=== PATIENT | female | born 1960 | race Caucasian/White ===

== ENCOUNTER 2018-01-01 07:30 | Emergency (ER) | payer OTHER ==
[~2018-01-01] VITALS: Ht 160 cm; Wt 55.8 kg
[2018-01-01] MEDS ORDERED: HALOPERIDOL LACTATE INJ 5 MG/ML VIAL ONE (07:37)
--- NOTE | 2018-01-01 07:40 | NUR ---
CAROL BY PARAMEDICS , PER REPORT, PT FOUND LOITERING AT 12/[address] [employer]IZZ[employer] , AOX1 CONFUSE , AGITATED , VSS , WILL CONTINUE TO MONITOR .
[2018-01-01] MEDS ORDERED: LORAZEPAM INJ 2 MG/ML VIAL ONE (07:42)
--- NOTE | 2018-01-01 07:50 | NUR ---
PATIENT IS MORE AGITATED , COMBATIVE , TRYING TO LEAVE , NOTIFIED MD , ORDERS RECIEVED .
[2018-01-01 07:59] LABS: BASOPHILS % (AUTO) 0.5 % (0.0-2.0); EOSINOPHILS % (AUTO) 0.1 % (0.0-6.0); HEMATOCRIT 38 % (33-45); HEMOGLOBIN 12.9 g/dL (11.5-14.8); LYMPHOCYTES # (AUTO) 1.5 /CMM (0.8-4.8); MEAN CORPUSCULAR HEMOGLOBIN 31 PG (26.0-33.0); MEAN CORPUSCULAR HGB CONC 34 g/dl (31.0-36.0); MEAN CORPUSCULAR VOLUME 92 fL (82-100); MONOCYTES # (AUTO) 0.7 /CMM (0.1-1.30); MONOCYTES % (AUTO) 7.6 % (2.0-12.0); NEUTROPHILS # (AUTO) 7.3 /CMM (1.8-8.9); NEUTROPHILS % (AUTO) 75.8 % (43.0-81.0); PLATELET COUNT (AUTO) 260 /CMM (150-450); RDW COEFFICIENT OF VARIATION 13.5 (11.5-15.0); RED BLOOD CELL COUNT(AUTO) 4.15 MIL/uL (4.0-5.2); WHITE BLOOD COUNT (AUTO) 9.6 K/uL (4.3-11.0)
[2018-01-01] MEDS ORDERED: LORAZEPAM INJ 2 MG/ML VIAL IM ONE (08:00)
[2018-01-01] MEDS ORDERED: HALOPERIDOL LACTATE INJ 5 MG/ML VIAL IM ONE (08:00)
[2018-01-01 08:13] LABS: ALANINE AMINOTRANSFERASE 36 U/L (12-78); ALBUMIN 4.4 g/dL (3.4-5.0); ALCOHOL, BLOOD < 3 mg/dL (0-0); ALKALINE PHOSPHATASE 61 U/L (46-116); ASPARTATE AMINOTRANSFERASE 65 U/L (15-37); BILIRUBIN,DIRECT 0.2 mg/dL (0.0-0.2); CALCIUM, SERUM 9.3 mg/dL (8.5-10.1); CARBON DIOXIDE 17 mmol/L (21-32); CHLORIDE 102 mmol/L (98-107); CREATININE 1.6 mg/dL (0.6-1.3); GLUCOSE 123 mg/dL (74-106); POTASSIUM 4.1 mmol/L (3.5-5.1); SALICYLATE 1.7 mg/dL (2.8-20.0); SODIUM SERUM 139 mmol/L (136-145); TOTAL PROTEIN, SERUM 8.1 g/dL (6.4-8.2); UREA NITROGEN, BLOOD 34 mg/dL (7-18)
[2018-01-01 08:14] LABS: ACETAMINOPHEN 0 ug/ml (10-30)
--- NOTE | 2018-01-01 08:15 | NUR ---
Patient is resting comfortably in bed with eyes closed. Easily aroused. VSS .
--- NOTE | 2018-01-01 10:30 | NUR ---
PATIENT RESTING IN BED IN STABLE CONDITION. VSS. WILL MONIOTR ACCORDINGLY.
--- NOTE | 2018-01-01 17:40 | NUR ---
PATIENT IN STABLE CONDITION RESTING. RESTRAINTS ON, VISUAL SAFETY CHECKED EVERY 2HR AND NEEDED, TURNED AND REPOSITIONED NEEDED. WILL CONTINUE TO MONIOTR ACCORDINGLY.
[2018-01-01 18:24] VITALS: BP 113/71
--- NOTE | 2018-01-01 18:25 | NUR ---
PATIENT AWAKE IN BED. CALM, COOPERATIVE, MORE ALERT AND ORIENTED. OFF RESTRAINTS, NO COMPLICATIONS. VSS. NOTIFIED MD. DINNER REQUESTED AND GIVEN.
--- NOTE | 2018-01-01 19:00 | NUR ---
PATIENT IN STABLE CONDITION, ENDORSED TO JEREMY HU
--- NOTE | 2018-01-01 19:15 | NUR ---
PT DISCHARGED HOME IN STABLE CONDITION
== END 2018-01-01 19:15 | disposition home or self-care (01) ==
LOC: ER 07:31
DX: F29 Unspecified psychosis not due to a substance or known physiological condition (principal); Z86.19 Personal history of other infectious and parasitic diseases
CPT/HCPCS: 36415; 80048; 80076; 80329; 85025; 96372 ×2; 99291; A4606; G0480 ×2; J1630; J2060; Z7610

== ENCOUNTER 2018-06-25 11:52 | Emergency (ER) | payer OTHER ==
[~2018-06-25] VITALS: Ht 154.9 cm; Wt 58.5 kg
--- NOTE | 2018-06-25 11:52 | NUR ---
PT BIBRA FROM THE STREETS FOR AGITATION AND RESTLESSNESS, PT TALKING TO SELF AND YELLING.; PT AOX0, NOT APPROPRIETLY ANSWERING QUESTIONS, RESPIRATIONS EVEN AND UNLABORED, NO SOB, NAD NOTED, PT ON MONITOR, VSS, PENDING ER PROVIDER MEENUAL
[2018-06-25] MEDS ORDERED: LORAZEPAM INJ 2 MG/ML VIAL ONE (12:00)
[2018-06-25] MEDS ORDERED: OLANZAPINE 10 MG VIAL IM ONE ×2 (12:00→13:00)
[2018-06-25 12:08] LABS: BASOPHILS # (AUTO) 0.1 /CMM (0.0-0.2); BASOPHILS % (AUTO) 0.7 % (0.0-2.0); EOSINOPHILS % (AUTO) 0.1 % (0.0-6.0); HEMATOCRIT 43 % (33-45); HEMOGLOBIN 14.2 g/dL (11.5-14.8); LYMPHOCYTES % (AUTO) 16.3 % (20.0-44.0); MEAN CORPUSCULAR HGB CONC 33 g/dl (31.0-36.0); MEAN CORPUSCULAR VOLUME 90 fL (82-100); MONOCYTES # (AUTO) 0.9 /CMM (0.1-1.30); MONOCYTES % (AUTO) 7.5 % (2.0-12.0); NEUTROPHILS # (AUTO) 9.4 /CMM (1.8-8.9); NEUTROPHILS % (AUTO) 75.4 % (43.0-81.0); PLATELET COUNT (AUTO) 359 /CMM (150-450); RED BLOOD CELL COUNT(AUTO) 4.78 MIL/uL (4.0-5.2); WHITE BLOOD COUNT (AUTO) 12.5 K/uL (4.3-11.0)
--- NOTE | 2018-06-25 12:11 | NUR ---
VERBAL ORDER OF ZYPREXA 10MG IM AND ATIVAN 2MG IM GIVEN PER DR. MUSE'S ORDER
[2018-06-25 12:16] LABS: CALCIUM, SERUM 9.8 mg/dL (8.5-10.1); CARBON DIOXIDE 22 mmol/L (21-32); CHLORIDE 102 mmol/L (98-107); CREATININE 1.6 mg/dL (0.6-1.3); GLUCOSE 133 mg/dL (74-106); POTASSIUM 3.8 mmol/L (3.5-5.1); SODIUM SERUM 141 mmol/L (136-145); UREA NITROGEN, BLOOD 29 mg/dL (7-18)
[2018-06-25 12:22] LABS: ALANINE AMINOTRANSFERASE 25 U/L (12-78); ALBUMIN 4.7 g/dL (3.4-5.0); ALCOHOL, BLOOD < 3 mg/dL (0-0); ALKALINE PHOSPHATASE 75 U/L (46-116); ASPARTATE AMINOTRANSFERASE 30 U/L (15-37); BILIRUBIN,DIRECT 0.1 mg/dL (0.0-0.2); BILIRUBIN,TOTAL 0.4 mg/dL (0.2-1.0); SALICYLATE 3.3 mg/dL (2.8-20.0); TOTAL PROTEIN, SERUM 8.6 g/dL (6.4-8.2)
[2018-06-25 12:25] LABS: ACETAMINOPHEN < 10 ug/ml (10-30)
[2018-06-25] MEDS ORDERED: LORAZEPAM INJ 2 MG/ML VIAL IM ONE (13:00)
--- NOTE | 2018-06-25 13:06 | NUR ---
Ira caceres in ED - 06/25/18 at 1349 by AMAYA OFFICER KAM [id number] CAME AND INTERVIEW PT REGARDING PT CLAIM. PER OFFICER TO HAVE PT EVALUATED BY OUR PSYCH CLINICIAN
[2018-06-25 16:10] LABS: APPEARANCE,URINE CLEAR (CLEAR); BILIRUBIN,URINE NEGATIVE (NEGATIVE); BLOOD, URINE 3+ Ery/uL (NEGATIVE); COLOR,URINE YELLOW (YELLOW); KETONES,URINE TRACE (NEGATIVE); LEUKOCYTE ESTERASE ,URINE TRACE (NEGATIVE); NITRITE, URINE NEGATIVE (NEGATIVE); PROTEIN,URINE TRACE mg/dl (NEGATIVE); UGLUCOSE TRACE mg/dL (NEGATIVE); UROBILINOGEN,URINE 0.2 EU/dL (0.2)
[2018-06-25 16:22] LABS: BACTERIA,URINE Rare /HPF (None Seen); SQUAMOUS EPITHELIAL CELL,UR Few /HPF (None Seen); WBC,URINE 0-2 /HPF (0-3)
--- NOTE | 2018-06-26 06:00 | NUR ---
PATIENT AOX4. PATIENT GIVEN A SANDWICH AND GATORAID. PATIENT GIVEN CLOTHES TO WEAR WHEN SHE LEAVES THE ER.
[2018-06-26 06:27] VITALS: BP 118/82
== END 2018-06-26 06:27 | disposition home or self-care (01) ==
LOC: ER 11:56
DX: F23 Brief psychotic disorder (principal); F29 Unspecified psychosis not due to a substance or known physiological condition; F19.959 Other psychoactive substance use, unspecified with psychoactive substance-induced psychotic disorder, unspecified; Z86.19 Personal history of other infectious and parasitic diseases
CPT/HCPCS: 36415; 80048; 80076; 80305; 80307; 80329; 81001; 84702; 85025; 96372 ×2; 99284; A4606; G0480; J2060; J3490; 81000-TC

== ENCOUNTER 2019-01-05 15:26 | Emergency (ER) | payer OTHER ==
[~2019-01-05] VITALS: Ht 154.9 cm; Wt 46.7 kg
--- NOTE | 2019-01-05 15:26 | NUR ---
PT BIB RA 88 FROM INFRONT OF A LOCAL ESTABLISHMENT,ETOH INTOXICATION,LAYING ON THE SIDEWALK PER REPORT, PT IS AAOX1, NOT IN RESPIRAOTRY DISTRESS, V/S STABLE, KEPT RESTED AND COMFORTABLE, WILL CONTINUE TO MONITOR.
--- NOTE | 2019-01-05 17:58 | NUR ---
PT ASLEEP ON BED EASILY AROUSABLE, WILL CONTINUE TO MONITOR.
--- NOTE | 2019-01-05 21:18 | NUR ---
PT RESTING COMFORTABLY IN BED. EASILY AROUSABLE. VITAL SIGNS STABLE. WILL CONTINUE TO MONITOR
--- NOTE | 2019-01-05 23:13 | NUR ---
PT RESTING COMFORTABLY IN BED. EASILY AROUSABLE. VITAL SIGNS STABLE. WILL CONTINUE TO MONITOR
--- NOTE | 2019-01-06 04:40 | NUR ---
PT RESTING COMFORTABLY IN BED. VITAL SIGNS STABLE. NO ACUTE DISTRESS NOTED AT THIS TIME. WILL CONTINUE TO MONITOR
--- NOTE | 2019-01-06 05:37 | NUR ---
PT AAOX4. VITAL SIGNS STABLE. ABLE TO AMBULATE WITH STEADY GAIT. MEDICALLY CLEARED FOR DISCHARGE. PROVIDED PT WITH CRACKERS AND JUICE. REMOVED WRIST BAND. Patient given written and verbal discharge instructions. Patient verbalizes understanding of instructions. Patient is ambulatory with steady gait. Refuses offer of [facility] placement. Patient given list of available shelters in surrounding area.
[2019-01-06 05:39] VITALS: BP 112/72
== END 2019-01-06 05:41 | disposition home or self-care (01) ==
LOC: ER 15:29
DX: F10.129 Alcohol abuse with intoxication, unspecified (principal); Z60.2 Problems related to living alone; Y90.9 Presence of alcohol in blood, level not specified

== ENCOUNTER 2019-01-24 18:39 | Emergency (ER) | payer OTHER ==
[~2019-01-24] VITALS: Ht 157.5 cm; Wt 56.7 kg
[2019-01-24 19:04] VITALS: BP 134/78
--- NOTE | 2019-01-24 19:51 | NUR ---
CALLED FOR PT IN WAITING ROOM. NO RESPONSE
--- NOTE | 2019-01-24 20:31 | NUR ---
CALLED FOR PT. NO RESPONSE
== END 2019-01-24 22:01 | disposition left against medical advice (07) ==
LOC: ER 18:45
DX: M79.673 Pain in unspecified foot (principal); Z53.21 Procedure and treatment not carried out due to patient leaving prior to being seen by health care provider

== ENCOUNTER 2019-03-12 18:56 | Emergency (ER) | payer OTHER ==
[~2019-03-12] VITALS: Ht 157.5 cm; Wt 56.7 kg
--- NOTE | 2019-03-12 19:20 | NUR ---
BIBRA AND [employer] FROM STREET. TO ER BED 11. AAOX3. NO RESP DISTRESS NOTED. AMBULATORY. PER EMS REPORT PT WAS FOUNF IN THE STREETS RUNNING NAKED. UPON ASSESSMENT PT PRESENT PARANOID AND ANXIOUS. PT REPORT HEARING VOICE. NO SI OR HI. MD AT BEDSIDE FOR EVAL. ORDERS RECEIVED NOTED AND CARRIED OUT
[2019-03-12] MEDS ORDERED: OLANZAPINE 5 MG TABLET PO ONE (19:30)
[2019-03-12] MEDS ORDERED: LORAZEPAM 1 MG TABLET PO ONE (19:30)
[2019-03-12 19:42] LABS: BASOPHILS # (AUTO) 0.1 /CMM (0.0-0.2); BASOPHILS % (AUTO) 0.9 % (0.0-2.0); EOSINOPHILS % (AUTO) 0.1 % (0.0-6.0); HEMATOCRIT 38 % (33-45); HEMOGLOBIN 12.5 g/dL (11.5-14.8); LYMPHOCYTES # (AUTO) 1.5 /CMM (0.8-4.8); LYMPHOCYTES % (AUTO) 20.6 % (20.0-44.0); MEAN CORPUSCULAR HGB CONC 33 g/dl (31.0-36.0); MEAN CORPUSCULAR VOLUME 86 fL (82-100); MONOCYTES # (AUTO) 0.4 /CMM (0.1-1.30); MONOCYTES % (AUTO) 5.7 % (2.0-12.0); NEUTROPHILS # (AUTO) 5.1 /CMM (1.8-8.9); NEUTROPHILS % (AUTO) 72.7 % (43.0-81.0); PLATELET COUNT (AUTO) 343 /CMM (150-450); RED BLOOD CELL COUNT(AUTO) 4.48 MIL/uL (4.0-5.2); WHITE BLOOD COUNT (AUTO) 7.1 K/uL (4.3-11.0)
[2019-03-12] MEDS ORDERED: LORAZEPAM 1 MG TABLET ONE (19:42)
[2019-03-12] MEDS ORDERED: OLANZAPINE 5 MG TABLET ONE (19:42)
[2019-03-12 19:49] LABS: BILIRUBIN,URINE Negative (NEGATIVE); BLOOD, URINE Moderate Ery/uL (NEGATIVE); COLOR,URINE Yellow (YELLOW); KETONES,URINE Trace (NEGATIVE); LEUKOCYTE ESTERASE ,URINE Small (NEGATIVE); NITRITE, URINE Positive (NEGATIVE); PH,URINE 5.5 (5.0-8.0); PROTEIN,URINE 100 mg/dl (NEGATIVE); UGLUCOSE Negative (NEGATIVE); UROBILINOGEN,URINE 0.2 EU/dL (0.2)
[2019-03-12 19:51] LABS: APPEARANCE,URINE TURBID (CLEAR)
[2019-03-12 19:52] LABS: BACTERIA,URINE Moderate /HPF (None Seen); SQUAMOUS EPITHELIAL CELL,UR Few /HPF (None Seen); WBC,URINE 81-100 /HPF (0-3)
[2019-03-12 20:00] LABS: ALANINE AMINOTRANSFERASE 16 U/L (12-78); ALBUMIN 4.4 g/dL (3.4-5.0); ALCOHOL, BLOOD < 3 mg/dL (0-0); ALKALINE PHOSPHATASE 100 U/L (46-116); ASPARTATE AMINOTRANSFERASE 48 U/L (15-37); BILIRUBIN,DIRECT 0.1 mg/dL (0.0-0.2); BILIRUBIN,TOTAL 0.4 mg/dL (0.2-1.0); CARBON DIOXIDE 26 mmol/L (21-32); CHLORIDE 106 mmol/L (98-107); CREATININE 2.1 mg/dL (0.6-1.3); GLUCOSE 105 mg/dL (74-106); POTASSIUM 4.3 mmol/L (3.5-5.1); SODIUM SERUM 144 mmol/L (136-145); TOTAL PROTEIN, SERUM 9.2 g/dL (6.4-8.2); UREA NITROGEN, BLOOD 31 mg/dL (7-18)
[2019-03-12] MEDS ORDERED: CEPHALEXIN MONOHYDRATE 500 MG CAPSULE PO ONE ×2 (20:00→20:17)
[2019-03-12 20:01] LABS: SALICYLATE < 2.8 mg/dL (2.8-20.0)
--- NOTE | 2019-03-12 20:28 | NUR ---
CALLED COMMODITY BU[employer]ER [employer]
--- NOTE | 2019-03-12 21:21 | NUR ---
[facility] ETA 15 MINUTES
--- NOTE | 2019-03-12 22:43 | NUR ---
PT IN BED. AWAKE AND ALERT. NOTED TALKING TO HERSELF
--- NOTE | 2019-03-13 02:18 | NUR ---
Patient is resting comfortably in bed with eyes closed. Easily aroused. VSS
--- NOTE | 2019-03-13 05:31 | NUR ---
Patient is resting comfortably in bed with eyes closed. Easily aroused. VSS. SITTER AT BEDSIDE. -ACUTE DISTRESS NOTED
--- NOTE | 2019-03-13 07:28 | NUR ---
RECEIVED REPORT FROM AIMEE LUNA. PATIENT RECEIVED AWAKE, A/O X 3, AROUSABLE THROUGH VERBAL AND TACTILE STIMULI. NO ACUTE DISTRESS. DENIES ANY PAIN OR DISCOMFORT. PER SHIFT CHANGE REPORT, AWAITING FOR SOCIAL SERVICE. WILL CONTINUE TO MONITOR
--- NOTE | 2019-03-13 07:51 | NUR ---
Patient eating breakfast. will continue to monitor
--- NOTE | 2019-03-13 08:12 | NUR ---
HEAVY EQUIPMENT FIELD MECHANIC AT BEDSIDE
--- NOTE | 2019-03-13 08:20 | NUR ---
Social service consult requested by Dr. Bliss for homelessness. Pt. is a 58 year old female who was brought to [facility] ED by [employer] and rescue ambulance after she was found wandering naked on the streets. Upon arrival pt. had complains of hearing voices from her brother who is not alive and other people. hazardous materials driver, Chana evaluated the pt. and pt. was cleared psychiatrically. SW met with the pt. bedside this morning. Pt. is alert and oriented x 4. Pt. appears unkempt and disheveled. Pt. states she is homeless and has been since 2016. SW inquired with the pt. about [facility] since Chana had mentioned in her report that pt. was residing there. However, pt. stated she did not live there. A pillowcase cutter had a approached her in the streets and had recommended [facility]. SW offered pt. snf placement, however pt. declined stating she doesn't want to go to [facility]. SW gave pt information to [facility] located at [facility] [place]. ANA informed pt. to call their access hotline at . Pt. uses methamphetamine and alcohol. SW encouraged pt. to stop using and offered resources to Alcohol and Drug treatment programs. Pt. has a history of Schizophrenia and Alcohol use. Pt. denies suicidal/ homicidal ideations and visual/auditory hallucinations at this time. Pt. was provided information to the [facility] (Housing Options for people with Aids) program and requested for pt. to sign up for housing with their regional offices located at [facility], [address] [place] [address] . The following homeless snf and resources were provided to the pt: [facility] located at [address] ; [facility], [address] ; [facility] Homeless Resource Directory which includes food stamps, transitional housing, showers and hot meals etc; Mental Health clinics such as [facility] ; [facility] ; Health clinics;[facility] and Alcohol treatment centers such as [facility], ; [facility] Substance Abuse Hotline and [facility] . Pt. was also given information to [facility] located at [address] [facility] . Pt. was provided with breakfast, TAP card and clothing. No other social service needs are requested at this time. Pt's JEREMY Sommers and Dr. Bliss have been updated with pt's discharge plan.
--- NOTE | 2019-03-13 10:01 | NUR ---
PATIENT SEEN BY HEEL SEAT LASTER. PATIENT VERBALIZED THAT SHE PREFERS TO SET HER OWN ARRANGEMENTS. REQUESTED FOR CLOTHING AND TAP CARD. HANDOUTS PROVIDED TO PATIENT. DR ROJAS MADE AWARE AND GAVE ORDER FOR DISCHARGE. PLANETARIUM SKY SHOW TECHNICIAN MADE AWARE
[2019-03-13 10:25] VITALS: BP 130/82
--- NOTE | 2019-03-13 10:47 | NUR ---
Patient discharged in stable condition. Written and verbal after care instructions given. Patient verbalizes understanding of instruction. clean clothing provided. tap card provided to patient. ID band removed.
== END 2019-03-13 10:49 | disposition home or self-care (01) ==
LOC: ER 19:03
DX: F29 Unspecified psychosis not due to a substance or known physiological condition (principal); F20.9 Schizophrenia, unspecified; F41.9 Anxiety disorder, unspecified; F10.20 Alcohol dependence, uncomplicated; Y90.0 Blood alcohol level of less than 20 mg/100 ml; Z86.19 Personal history of other infectious and parasitic diseases; Z59.0 Homelessness
CPT/HCPCS: 36415; 80048; 80076; 80305; 80307; 80329; 81001; 85025; 87086; 99284; G0480; 81000-TC; 87186-TC

== ENCOUNTER 2019-04-09 10:52 | Inpatient (IN) | payer OTHER ==
[~2019-04-09] VITALS: Ht 157.5 cm; Wt 56.7 kg
[2019-04-09] MEDS ORDERED: LORAZEPAM INJ 2 MG/ML VIAL ONE (11:47)
[2019-04-09] MEDS ORDERED: LORAZEPAM INJ 2 MG/ML VIAL IM ONE (12:00)
[2019-04-09 12:29] LABS: BASOPHILS # (AUTO) 0.1 /CMM (0.0-0.2); BASOPHILS % (AUTO) 0.8 % (0.0-2.0); EOSINOPHILS % (AUTO) 0.3 % (0.0-6.0); HEMATOCRIT 39 % (33-45); HEMOGLOBIN 12.8 g/dL (11.5-14.8); LYMPHOCYTES # (AUTO) 2.5 /CMM (0.8-4.8); LYMPHOCYTES % (AUTO) 20.6 % (20.0-44.0); MEAN CORPUSCULAR HGB CONC 33 g/dl (31.0-36.0); MEAN CORPUSCULAR VOLUME 84 fL (82-100); MONOCYTES % (AUTO) 8.5 % (2.0-12.0); NEUTROPHILS # (AUTO) 8.6 /CMM (1.8-8.9); NEUTROPHILS % (AUTO) 69.8 % (43.0-81.0); PLATELET COUNT (AUTO) 378 /CMM (150-450); RED BLOOD CELL COUNT(AUTO) 4.65 MIL/uL (4.0-5.2); WHITE BLOOD COUNT (AUTO) 12.3 K/uL (4.3-11.0)
[2019-04-09 12:33] LABS: CALCIUM, SERUM 10.1 mg/dL (8.5-10.1); CARBON DIOXIDE 19 mmol/L (21-32); CHLORIDE 106 mmol/L (98-107); CREATININE 2.7 mg/dL (0.6-1.3); GLUCOSE 53 mg/dL (74-106); POTASSIUM 4.5 mmol/L (3.5-5.1); SODIUM SERUM 146 mmol/L (136-145); UREA NITROGEN, BLOOD 48 mg/dL (7-18)
[2019-04-09 12:39] LABS: ACETAMINOPHEN 0 ug/ml (10-30); ALANINE AMINOTRANSFERASE 26 U/L (12-78); ALBUMIN 4.8 g/dL (3.4-5.0); ALCOHOL, BLOOD < 3 mg/dL (0-0); ALKALINE PHOSPHATASE 95 U/L (46-116); ASPARTATE AMINOTRANSFERASE 56 U/L (15-37); BILIRUBIN,DIRECT 0.2 mg/dL (0.0-0.2); BILIRUBIN,TOTAL 0.7 mg/dL (0.2-1.0); SALICYLATE 2.2 mg/dL (2.8-20.0); TOTAL PROTEIN, SERUM 9.2 g/dL (6.4-8.2)
[2019-04-09 12:54] LABS: APPEARANCE,URINE Clear (CLEAR); BILIRUBIN,URINE SMALL (NEGATIVE); BLOOD, URINE Moderate Ery/uL (NEGATIVE); COLOR,URINE Yellow (YELLOW); KETONES,URINE 15 (NEGATIVE); LEUKOCYTE ESTERASE ,URINE Negative (NEGATIVE); NITRITE, URINE Negative (NEGATIVE); PROTEIN,URINE 100 mg/dl (NEGATIVE); UGLUCOSE Negative (NEGATIVE); UROBILINOGEN,URINE 0.2 EU/dL (0.2)
[2019-04-09] MEDS ORDERED: OLANZAPINE 10 MG VIAL IM ONE ×2 (12:59→13:00)
[2019-04-09 13:03] LABS: BACTERIA,URINE Moderate /HPF (None Seen); SQUAMOUS EPITHELIAL CELL,UR Few /HPF (None Seen); WBC,URINE 0-2 /HPF (0-3)
[2019-04-09] MEDS ORDERED: IV NS 0.9% 1,000 ML BAG IV ONE (13:30)
[2019-04-09] MEDS ORDERED: MAG HYDROX/AL HYDROX/SIMETH 30 ML UDC PO PRN (14:30)
[2019-04-09] MEDS ORDERED: ONDANSETRON HCL/PF 4 MG/2 ML VIAL IVP PRN (14:30)
[2019-04-09] MEDS ORDERED: ZOLPIDEM TARTRATE 5 MG TABLET PO PRN (14:30)
[2019-04-09] MEDS ORDERED: HYDROCODONE/APAP 5/325MG 1 EACH TABLET PO PRN (14:30)
[2019-04-09] MEDS ORDERED: Z GUARD REMEDY 2 OZ OINT TP PRN (14:30)
[2019-04-09] MEDS ORDERED: MAGNESIUM HYDROXIDE 30 ML UDC PO PRN (14:30)
[2019-04-09] MEDS ORDERED: ACETAMINOPHEN 325 MG TABLET PO PRN (14:30)
[2019-04-09] MEDS: IV 1/2NS 1000 ML 1,000 ML IV PRN (15:18)
[2019-04-09 16:00] VITALS: BP 135/84
[2019-04-09 21:01] VITALS: BP 115/62
[2019-04-10] MEDS: IV 1/2NS 1000 ML 1,000 ML IV PRN (04:18)
[2019-04-10 06:43] LABS: EOSINOPHILS % (AUTO) 3.7 % (0.0-6.0); HEMATOCRIT 35 % (33-45); HEMOGLOBIN 11.5 g/dL (11.5-14.8); LYMPHOCYTES # (AUTO) 1.5 /CMM (0.8-4.8); LYMPHOCYTES % (AUTO) 32.4 % (20.0-44.0); MEAN CORPUSCULAR HGB CONC 33 g/dl (31.0-36.0); MEAN CORPUSCULAR VOLUME 85 fL (82-100); MONOCYTES # (AUTO) 0.5 /CMM (0.1-1.30); NEUTROPHILS # (AUTO) 2.4 /CMM (1.8-8.9); NEUTROPHILS % (AUTO) 51.9 % (43.0-81.0); PLATELET COUNT (AUTO) 257 /CMM (150-450); RED BLOOD CELL COUNT(AUTO) 4.11 MIL/uL (4.0-5.2); WHITE BLOOD COUNT (AUTO) 4.5 K/uL (4.3-11.0)
[2019-04-10 07:14] LABS: ALBUMIN 3.3 g/dL (3.4-5.0); BILIRUBIN,TOTAL 0.6 mg/dL (0.2-1.0); CALCIUM, SERUM 8.3 mg/dL (8.5-10.1); CREATININE 1.7 mg/dL (0.6-1.3); MAGNESIUM 2.3 mg/dL (1.8-2.4); PHOSPHORUS 3.1 mg/dL (2.5-4.9); POTASSIUM 3.4 mmol/L (3.5-5.1); TOTAL PROTEIN, SERUM 6.9 g/dL (6.4-8.2)
[2019-04-10] MEDS ORDERED: FLUC200T PO (07:50)
[2019-04-10] MEDS ORDERED: QUET50TA PO (07:50)
[2019-04-10 08:00] VITALS: BP 118/67
[2019-04-10] MEDS: QUETIAPINE FUMARATE 25 MG TABLET PO SCH ×2 (08:42→16:03)
[2019-04-10] MEDS ORDERED: POTASSIUM CHLORIDE 20 MEQ TAB.PRT.SR PO ONE (10:00)
[2019-04-10 20:00] VITALS: BP 133/78
[2019-04-10] MEDS: MUPIROCIN OINT 2% 22 GM TUBE SCH (21:16)
[2019-04-11] MEDS: IV 1/2NS 1000 ML 1,000 ML IV PRN (02:24)
[2019-04-11] MEDS: QUETIAPINE FUMARATE 25 MG TABLET PO SCH (08:28)
[2019-04-11] MEDS: MUPIROCIN OINT 2% 22 GM TUBE SCH (09:36)
== END 2019-04-11 16:30 | DRG 469 ==
LOC: ER 10:52 → MED 14:23
PROVIDERS: ADMIT Internal Medicine
DX: N17.0 Acute kidney failure with tubular necrosis (principal); G92 Toxic encephalopathy; E87.0 Hyperosmolality and hypernatremia; F20.0 Paranoid schizophrenia; F15.10 Other stimulant abuse, uncomplicated; B19.20 Unspecified viral hepatitis C without hepatic coma; N18.9 Chronic kidney disease, unspecified; Z59.0 Homelessness; D72.829 Elevated white blood cell count, unspecified; R74.0 Nonspecific elevation of levels of transaminase and lactic acid dehydrogenase [LDH]; E87.6 Hypokalemia; Z22.322 Carrier or suspected carrier of Methicillin resistant Staphylococcus aureus; E86.9 Volume depletion, unspecified; F10.20 Alcohol dependence, uncomplicated; Y90.0 Blood alcohol level of less than 20 mg/100 ml
CPT/HCPCS: 36415; 80048-TC; 80053-TC; 80061-TC; 80076-TC; 80305; 81000-TC; 83735-TC; 84100-TC; 85025-TC; 87081-TC; 87086-TC; G0378; G0480; J2060; J3490; J7030

== ENCOUNTER 2019-05-21 15:52 | Emergency (ER) | payer OTHER ==
[~2019-05-21] VITALS: Ht 160 cm; Wt 65.8 kg
[~2019-05-21 15:52] MED LIST: FLUC200T PO; QUET50TA PO
[2019-05-21 16:10] VITALS: BP 138/77
--- NOTE | 2019-05-21 17:03 | NUR ---
Patient given written and verbal discharge instructions. Patient verbalizes understanding of instructions. Patient is ambulatory with steady gait. Refuses offer of half-way placement. Patient given list of available shelters in surrounding area. Tap card, food provided. Signed homeless waiver, and winter half-way resources provided. left in stable condition.
== END 2019-05-21 17:03 | disposition home or self-care (01) ==
LOC: ER 15:54
DX: S90.822A Blister (nonthermal), left foot, initial encounter (principal); F10.10 Alcohol abuse, uncomplicated; Z59.0 Homelessness; Z86.19 Personal history of other infectious and parasitic diseases; Z79.899 Other long term (current) drug therapy; Y90.9 Presence of alcohol in blood, level not specified; X58.XXXA Exposure to other specified factors, initial encounter; Y93.89 Activity, other specified; Y92.89 Other specified places as the place of occurrence of the external cause; Y99.8 Other external cause status

== ENCOUNTER 2020-03-26 19:25 | Emergency (ER) | payer OTHER ==
[~2020-03-26] VITALS: Ht 162.6 cm; Wt 56.7 kg
--- NOTE | 2020-03-26 19:53 | NUR ---
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 pt also states left wrist s/p sleeping. pt aox4 rr even and unlabored. no sob noted. no nvd at this time. pt waiting waiting for md severino. pt ambulatory to restroom to provide UA sample.
--- NOTE | 2020-03-26 20:48 | NUR ---
pt appears comfortable at this time, resting with eyes closed.
--- NOTE | 2020-03-26 23:20 | NUR ---
Patient discharged in stable condition. Written and verbal after care instructions given. Patient verbalizes understanding of instruction.pt agreed to wait in waiting room for social media designer. pt clothed, provided with food. pt ambulatory with steady gait.
[2020-03-27 00:22] VITALS: BP 142/78
== END 2020-03-26 23:30 | disposition home or self-care (01) ==
LOC: ER 19:28
DX: R11.2 Nausea with vomiting, unspecified (principal); M25.532 Pain in left wrist; Z86.19 Personal history of other infectious and parasitic diseases; Z79.899 Other long term (current) drug therapy; Z59.0 Homelessness

== ENCOUNTER 2020-12-22 10:00 | Emergency (ER) | payer OTHER ==
[~2020-12-22] VITALS: Ht 157.5 cm; Wt 54.4 kg
[2020-12-22 10:07] VITALS: BP 139/89
--- NOTE | 2020-12-22 10:18 | NUR ---
Pt declines jail waiver signed. Patient discharged to previous living condition (Homeless) in stable condition. Written and verbal after care instructions given. Patient verbalizes understanding of instruction.
== END 2020-12-22 10:18 | disposition home or self-care (01) ==
LOC: ER 10:01
DX: L29.9 Pruritus, unspecified (principal); Z59.0 Homelessness

== ENCOUNTER 2021-03-03 12:32 | Emergency (ER) | payer OTHER ==
[~2021-03-03] VITALS: Ht 157.5 cm; Wt 54.4 kg
[2021-03-03 12:52] VITALS: BP 135/81
[2021-03-03] MEDS ORDERED: BACITRACIN ZINC OINT (15 GM) 15 GM TUBE TP STA (13:54)
[2021-03-03] MEDS ORDERED: KETOROLAC TROMETHAMINE INJ 60 MG/2 ML VIAL IM ONE (14:00)
[2021-03-03] MEDS ORDERED: CEPH500C2 PO (14:05)
[2021-03-03] MEDS ORDERED: SULF1TAB48 PO (14:05)
[2021-03-03] MEDS ORDERED: BACITRACIN ZINC OINT PACKET 1 EA PACKET TP ONE (14:10)
[2021-03-03] MEDS ORDERED: KETOROLAC TROMETHAMINE 15 MG/ML VIAL ONE (14:10)
--- NOTE | 2021-03-03 14:32 | NUR ---
Patient given written and verbal discharge instructions. Patient verbalizes understanding of instructions. Patient is ambulatory with steady gait. Refuses offer of senior care placement. Patient given list of available shelters in surrounding area.
== END 2021-03-03 14:32 | disposition home or self-care (01) ==
LOC: ER 12:34
DX: L97.529 Non-pressure chronic ulcer of other part of left foot with unspecified severity (principal); Z59.00 Homelessness unspecified; Z79.899 Other long term (current) drug therapy
CPT/HCPCS: 96372; 99283; J1885

== ENCOUNTER 2021-03-21 15:42 | Emergency (ER) | payer OTHER ==
[~2021-03-21] VITALS: Ht 157.5 cm; Wt 54.9 kg
[~2021-03-21 15:42] MED LIST changes: +CEPH500C2 PO; +SULF1TAB48 PO
[2021-03-21 17:32] LABS: BASOPHILS # (AUTO) 0.1 K/uL (0.0-0.2); BASOPHILS % (AUTO) 1.1 % (0.0-2.0); EOSINOPHILS % (AUTO) 0.2 % (0.0-6.0); HEMATOCRIT 32 % (33-45); HEMOGLOBIN 9.9 g/dL (11.5-14.8); LYMPHOCYTES # (AUTO) 1.7 K/uL (0.8-4.8); MEAN CORPUSCULAR HGB CONC 31 g/dl (31.0-36.0); MEAN CORPUSCULAR VOLUME 71 fL (82-100); MONOCYTES # (AUTO) 0.8 K/uL (0.1-1.30); MONOCYTES % (AUTO) 7.6 % (2.0-12.0); NEUTROPHILS # (AUTO) 7.4 K/uL (1.8-8.9); NEUTROPHILS % (AUTO) 74.1 % (43.0-81.0); PLATELET COUNT (AUTO) 545 K/uL (150-450); RED BLOOD CELL COUNT(AUTO) 4.49 MIL/uL (4.0-5.2)
[2021-03-21 17:42] LABS: CALCIUM, SERUM 9.3 mg/dL (8.5-10.1); CARBON DIOXIDE 22 mmol/L (21-32); CHLORIDE 106 mmol/L (98-107); CREATININE 2.5 mg/dL (0.6-1.3); GLUCOSE 93 mg/dL (74-106); POTASSIUM 4.4 mmol/L (3.5-5.1); SODIUM SERUM 142 mmol/L (136-145); UREA NITROGEN, BLOOD 49 mg/dL (7-18)
[2021-03-21 17:48] LABS: ACETAMINOPHEN < 0 ug/ml (10-30); ALANINE AMINOTRANSFERASE 25 U/L (12-78); ALCOHOL, BLOOD < 3 mg/dL (0-0); ALKALINE PHOSPHATASE 96 U/L (46-116); ASPARTATE AMINOTRANSFERASE 34 U/L (15-37); BILIRUBIN,DIRECT 0.2 mg/dL (0.0-0.2); BILIRUBIN,TOTAL 0.5 mg/dL (0.2-1.0); TOTAL PROTEIN, SERUM 8.6 g/dL (6.4-8.2)
[2021-03-21] MEDS ORDERED: TDAP [DIPH/PERTUSSIS/TET] 0.5 ML VIAL IM ONE ×2 (18:00→18:17)
[2021-03-21] MEDS ORDERED: IV NS 0.9% 1,000 ML BAG IV ONE ×2 (18:00→19:30)
[2021-03-21 18:01] LABS: LYMPHOCYTES % (MANUAL) 23 % (16-48); MONOCYTES % (MANUAL) 6 % (0-11.0); NEUTROPHILS % (MANUAL) 71 (42-76)
--- NOTE | 2021-03-21 18:10 | NUR ---
URINE COLLECTED AND SENT TO THE LAB
[2021-03-21] MEDS ORDERED: LORAZEPAM 0.5 MG TABLET ONE (18:26)
[2021-03-21] MEDS ORDERED: LORAZEPAM 1 MG TABLET PO ONE (18:30)
[2021-03-21 19:01] LABS: BILIRUBIN,URINE NEGATIVE (NEGATIVE); COLOR,URINE YELLOW (YELLOW); LEUKOCYTE ESTERASE ,URINE SMALL (NEGATIVE); NITRITE, URINE NEGATIVE (NEGATIVE); PROTEIN,URINE 100 mg/dl (NEGATIVE); UGLUCOSE NEGATIVE (NEGATIVE); UROBILINOGEN,URINE 0.2 EU/dL (0.2)
[2021-03-21 19:07] LABS: BACTERIA,URINE 1+ /HPF (None Seen)
[2021-03-21] MEDS ORDERED: CEFTRIAXONE 1GM BAG (ER ONLY) 1 GM/50 ML PIGGYBACK IV ONE (19:30)
--- NOTE | 2021-03-21 19:31 | NUR ---
SJID SWABBED, SENT TO LAB.
[2021-03-21] MEDS ORDERED: CEFTRIAXONE 1GM BAG (ER ONLY) 50 ML IV ONE (19:33)
[2021-03-21] MEDS ORDERED: LORAZEPAM INJ 2 MG/ML VIAL IV ONE (22:00)
[2021-03-22] MEDS ORDERED: CEPH500C2 PO (00:28)
[2021-03-22 02:59] VITALS: BP 145/90
--- NOTE | 2021-03-22 02:59 | NUR ---
Patient discharged to home in stable condition. Written and verbal after care instructions given. Patient verbalizes understanding of instruction.
[2021-03-22] MEDS ORDERED: CEPHALEXIN MONOHYDRATE 500 MG CAPSULE PO SCH (09:00)
== END 2021-03-22 03:00 | disposition home or self-care (01) ==
LOC: ER 15:46
DX: F15.129 Other stimulant abuse with intoxication, unspecified (principal); F19.10 Other psychoactive substance abuse, uncomplicated; N39.0 Urinary tract infection, site not specified; Z86.19 Personal history of other infectious and parasitic diseases; Z59.00 Homelessness unspecified; R03.0 Elevated blood-pressure reading, without diagnosis of hypertension; F28 Other psychotic disorder not due to a substance or known physiological condition; N18.9 Chronic kidney disease, unspecified; Z20.822 Contact with and (suspected) exposure to COVID-19
CPT/HCPCS: 36415; 70450; 80048; 80076; 80143; 80307; 80320; 81001; 85007; 85025; 87081; 87086; 87426; 96361; 96365; 99284; C9803; J0696; J7030; 90715; G0480

== ENCOUNTER 2021-07-14 | Emergency (ER) | payer OTHER ==
[~2021-07-14] VITALS: Ht 160 cm; Wt 54.4 kg
[2021-07-14 00:43] VITALS: BP 163/103
[2021-07-14] MEDS ORDERED: ACETAMINOPHEN ES 500 MG TABLET PO ONE (01:00)
[2021-07-14] MEDS ORDERED: IBUPROFEN 600 MG TABLET PO ONE (01:00)
[2021-07-14] MEDS ORDERED: ACETAMINOPHEN ES 500 MG TABLET ONE (01:00)
[2021-07-14] MEDS ORDERED: IBUPROFEN 600 MG TABLET ONE (01:01)
--- NOTE | 2021-07-14 02:13 | NUR ---
Patient discharged to home in stable condition. Written and verbal after care instructions given. Patient verbalizes understanding of instruction.
== END 2021-07-14 02:27 | disposition home or self-care (01) ==
LOC: ER 00:01
DX: M79.10 Myalgia, unspecified site (principal); F15.10 Other stimulant abuse, uncomplicated; Z59.00 Homelessness unspecified; Z79.899 Other long term (current) drug therapy

== ENCOUNTER 2022-08-25 20:57 | Emergency (ER) | payer OTHER ==
[~2022-08-25] VITALS: Ht 160 cm; Wt 56.7 kg
--- NOTE | 2022-08-25 22:20 | NUR ---
Pt is noted alert, responsive as she came in C/O Right Leg pain due to S/P Fall x5days ago. Pt care continue as awaits X-Ray off Right Humerus and Right Femur.
[2022-08-25] MEDS ORDERED: KETO10TA2 PO (22:28)
--- NOTE | 2022-08-25 23:15 | NUR ---
BUS AND SYS INTEGRATION SENIOR MANAGER AT PT'S BEDSIDE
[2022-08-26 00:38] VITALS: BP 132/80
--- NOTE | 2022-08-26 00:39 | NUR ---
Pt is noted off the unit as Pt is been discharge with no s/s off distress with all discharge instructions given.
== END 2022-08-26 00:39 | disposition home or self-care (01) ==
LOC: ER 20:59
DX: S76.811A Strain of other specified muscles, fascia and tendons at thigh level, right thigh, initial encounter (principal); F17.200 Nicotine dependence, unspecified, uncomplicated; Z59.00 Homelessness unspecified; Z79.899 Other long term (current) drug therapy; W01.0XXA Fall on same level from slipping, tripping and stumbling without subsequent striking against object, initial encounter; Y93.01 Activity, walking, marching and hiking; Y92.89 Other specified places as the place of occurrence of the external cause; Y99.8 Other external cause status
CPT/HCPCS: 73552

== ENCOUNTER 2024-04-25 06:30 | Emergency (ER) | payer OTHER ==
[~2024-04-25] VITALS: Ht 157.5 cm; Wt 54.4 kg
[~2024-04-25 06:30] MED LIST changes: +KETO10TA2 PO
[2024-04-25 06:48] VITALS: BP 156/80; TEMP 98.3; O2SAT 100
[2024-04-25] MEDS ORDERED: IBUPROFEN 600 MG TABLET ONE (07:05)
[2024-04-25] MEDS: IBUPROFEN 600 MG TABLET PO ONE (07:06)
== END 2024-04-25 07:11 | disposition home or self-care (01) ==
LOC: ER 06:30
DX: M79.604 Pain in right leg (principal); G89.29 Other chronic pain; M79.605 Pain in left leg; M79.10 Myalgia, unspecified site; Z59.00 Homelessness unspecified

== ENCOUNTER 2024-05-02 15:12 | Emergency (ER) | payer OTHER ==
[~2024-05-02] VITALS: Ht 157.5 cm; Wt 54.4 kg
[2024-05-02] MEDS ORDERED: IBUPROFEN 600 MG TABLET ONE (16:36)
[2024-05-02] MEDS: IBUPROFEN 600 MG TABLET PO ONE (16:38)
[2024-05-02 16:54] VITALS: BP 130/70; TEMP 98.3; O2SAT 98
== END 2024-05-02 16:58 | disposition home or self-care (01) ==
LOC: ER 15:15
DX: G89.29 Other chronic pain (principal); M79.604 Pain in right leg; F19.10 Other psychoactive substance abuse, uncomplicated; Z59.00 Homelessness unspecified